=== PATIENT | female | born 1965 | race Caucasian/White ===

== ENCOUNTER 2023-09-26 20:36 | Emergency (ER) | payer MEDICAID ==
[~2023-09-26] VITALS: Ht 152.4 cm; Wt 72.6 kg
[~2023-09-26 20:36] MED LIST: AMLO5TAB92 PO; ASPI-1457 PO; ATOR40TA68 PO; FAMO20TA8 PO; INSU100V SUBCUT; INSU100V9 SUBCUT; LABE200T9 PO; LEVE500T21 PO; ROCPM1 IV
[2023-09-26 20:50] VITALS: BP_SYST 172; PULSE 81; RESP 20; TEMP 97.8; O2SAT 98
[2023-09-26 21:19] LABS: BASOPHILS % (AUTO) 0.3 % (0.0-2.0); EOSINOPHILS # (AUTO) 0.2 K/uL (0.0-0.4); EOSINOPHILS % (AUTO) 1.9 % (0.0-4.0); HEMATOCRIT 22.8 % (36-48); HEMOGLOBIN 7.4 g/dL (12.0-16.0); LYMPHOCYTES % (AUTO) 33.8 % (20.5-51.5); MEAN CORPUSCULAR HEMOGLOBIN 31 pg (27-31); MEAN CORPUSCULAR HGB CONC 33 % (32-36); MEAN CORPUSCULAR VOLUME 96 fL (79.0-98.0); MONOCYTES # (AUTO) 0.6 K/uL (0.0-1.0); MONOCYTES % (AUTO) 6.9 % (1.7-9.3); NEUTROPHILS # (AUTO) 5.2 K/uL (1.8-7.7); NEUTROPHILS % (AUTO) 57.1 % (40.0-70.0); PLATELET COUNT (AUTO) 421 K/uL (130-430); RED BLOOD CELL COUNT(AUTO) 2.36 MIL/uL (4.2-6.2); RED CELL DISTRIBUTION WIDTH 13.2 % (9.0-15.0)
[2023-09-26 21:44] LABS: ALANINE AMINOTRANSFERASE 14 U/L (12-78); ALBUMIN 2.3 g/dL (3.4-4.8); ANION GAP 14 (5-15); ASPARTATE AMINOTRANSFERASE 12 U/L (10-37); CALCIUM 8.9 mg/dL (8.4-11.0); CARBON DIOXIDE 18 mmol/L (23-29); CHLORIDE 109 mmol/L (98-107); CREATININE 2.08 mg/dL (0.55-1.30); GFR AFRICAN AMERICAN 31 mL/min (>90); GFR NON AFRICAN-AMERICAN 26 mL/min (>90); GLUCOSE 152 mg/dL (74-106); LIPASE 17 U/L (16-77); POTASSIUM 4.8 mmol/L (3.5-5.1); SODIUM SERUM 141 mmol/L (136-145); TOTAL BILIRUBIN 0.2 mg/dL (0.0-1.0); TOTAL PROTEIN, SERUM 7.4 g/dL (6.4-8.3); UREA NITROGEN, BLOOD 40 mg/dL (8-21)
[2023-09-26 22:46] LABS: BILIRUBIN,URINE NEGATIVE (NEGATIVE); BLOOD, URINE 2+ (NEGATIVE); CLARITY/URINE TURBID (CLEAR); COLOR,URINE YELLOW (YELLOW); GLUCOSE,URINE NEGATIVE (NEGATIVE); KETONES,URINE NEGATIVE (NEGATIVE); LEUKOCYTE ESTERASE ,URINE 3+ (NEGATIVE); NITRITE, URINE NEGATIVE (NEGATIVE); PH,URINE 5.5 (5.0-8.0); PROTEIN URINE 2+ (NEGATIVE); UROBILINOGEN,URINE 0.2 (0.2-1.0)
[2023-09-26 23:12] LABS: BACTERIA,URINE MODERATE /HPF (None Seen); RBC,URINE 20-50 /HPF (0-3); WBC,URINE >100 /HPF (0-3)
[2023-09-26 23:14] LABS: OTHER CASTS, URINE WBC CASTS 1+ /LPF (None Seen)
[2023-09-26] MEDS: NACL 0.9% 1,000 ML IV ONE (23:35)
[2023-09-26] MEDS: FAMOTIDINE PF 20 MG/2 ML VIAL IVP ONE (23:56)
[2023-09-26] MEDS: MORPHINE 2 MG/ML INJ. SYRINGE IVP ONE (23:56)
[2023-09-27] MEDS: MAG-AL HYDROX/SIMETH 30 ML UDC GT ONE (00:06)
[2023-09-27] MEDS ORDERED: FAMO20TA8 PO (01:13)
[2023-09-27] MEDS ORDERED: ANT30 PO (01:17)
[2023-09-27] MEDS ORDERED: NITR-85 PO (01:20)
[2023-09-27 03:16] VITALS: BP_SYST 128; PULSE 81; RESP 17; TEMP 98; O2SAT 98
== END 2023-09-27 03:16 | disposition home or self-care (01) ==
LOC: SED 20:36
DX: R10.13 Epigastric pain (principal); N17.9 Acute kidney failure, unspecified; D64.9 Anemia, unspecified; E11.9 Type 2 diabetes mellitus without complications; Z79.4 Long term (current) use of insulin
CPT/HCPCS: 99285; 74176; 96374; 96361; 96375; 80053; 81001; 83690; 85025; 87086; 84484; 36415; 93005; 81000; 81015; J3490; J2270; J7030